=== PATIENT | female | born 1960 | race Caucasian/White ===

== ENCOUNTER 2016-06-05 13:32 | Inpatient (IN) | payer OTHER ==
[~2016-06-05] VITALS: Ht 167.6 cm; Wt 116.9 kg
[2016-06-15] MEDS ORDERED: DILT-64 PO (10:30)
[2016-06-15] MEDS ORDERED: ALPR0.5T3 PO (10:30)
[2016-06-15] MEDS ORDERED: ASPI81TA19 PO (10:30)
[2016-06-15] MEDS ORDERED: CALC500T17 PO (10:30)
[2016-06-15] MEDS ORDERED: POTA-163 PO (10:30)
[2016-06-15] MEDS ORDERED: CHOL1TAB42 PO (10:30)
[2016-06-15] MEDS ORDERED: MULTCAP2 PO (10:30)
[2016-06-15] MEDS ORDERED: HYDR12.56 PO (10:30)
[2016-06-18] MEDS ORDERED: SODIUM CHLORID 0.9% 500 ML IV SCH (06:45)
[2016-06-18] MEDS ORDERED: METOPROLOL TARTRATE 25 MG TAB PO PRN (06:45)
[2016-06-18] MEDS: CHLORHEXIDINE GLUCONATE 2 % 1 PACK (2 CLOTHS) TOP SCH (06:45)
[2016-06-18] MEDS ORDERED: LACTATED RINGER'S 1000 ML IV SCH (06:45)
[2016-06-18] MEDS ORDERED: INSULIN HUMAN REGULAR 1,000 UNITS/10 ML VIAL SQ PRN (06:45)
[2016-06-18] MEDS ORDERED: SCOPOLAMINE 1.5 MG PATCH T-DERMAL SCH (07:00)
[2016-06-18] MEDS ORDERED: metroNIDAZOLE 500 MG INJ 100 ML IV SCH (07:00)
[2016-06-18] MEDS ORDERED: APREPITANT 40 MG CAP PO SCH (07:00)
[2016-06-18] MEDS ORDERED: ceFAZolin 2 GM PREMIX 50 ML IV SCH (07:00)
[2016-06-18] MEDS ORDERED: ACETAMINOPHEN 1000 MG/100 ML VIAL IV SCH (07:00)
[2016-06-18] MEDS ORDERED: ONDANSETRON HCL 4 MG/2 ML VIAL IV PUSH SCH (07:00)
[2016-06-18] MEDS ORDERED: TRIA37.53 PO (07:12)
[2016-06-18] MEDS ORDERED: POTA10TA2 PO (07:15)
[2016-06-18 07:22] VITALS: BP 131/73; PULSE 64; RESP 18; TEMP 97.6; O2SAT 96
[2016-06-18] MEDS: POVIDONE IODINE 5% (ANTISEPSIS KIT) 4 APPLICATIONS EACH NARE SCH (07:35)
[2016-06-18] MEDS ORDERED: MIDAZOLAM HCL 2 MG/2 ML VIAL ONE (09:21)
[2016-06-18] MEDS ORDERED: BUPIVACAINE/EPINEPHRINE 0.25% 50 ML VIAL ONE (09:23)
[2016-06-18] MEDS ORDERED: HYDROmorphone HCL PF 2 MG/ML VIAL ONE (09:32)
[2016-06-18] MEDS ORDERED: fentaNYL CITRATE 250 MCG/5 ML AMP ONE (09:32)
[2016-06-18] MEDS ORDERED: METHYLENE BLUE 100 MG/10 ML VIAL NG ONE (10:08)
[2016-06-18] MEDS: D5-1/2 NS + KCL 20 MEQ INJ 1,000 ML IV SCH ×3 (10:58→22:35)
[2016-06-18] MEDS ORDERED: ACETAMINOPHEN 325MG/HYDROcodone 7.5MG/15ML UDC PO PRN (11:00)
[2016-06-18] MEDS ORDERED: NALOXONE HCL 0.4 MG/ML AMP IV PRN (11:00)
[2016-06-18] MEDS ORDERED: diphenhydrAMINE HCL ELIXIR 12.5 MG/5 ML CUP PO PRN (11:00)
[2016-06-18] MEDS ORDERED: diphenhydrAMINE HCL 50 MG/ML VIAL IV PRN (11:00)
[2016-06-18] MEDS ORDERED: ONDANSETRON HCL 4 MG/2 ML VIAL IV PRN (11:00)
[2016-06-18] MEDS ORDERED: ENALAPRILAT 1.25 MG/ML VIAL IV PUSH PRN (11:00)
[2016-06-18] MEDS ORDERED: SODIUM CHLORIDE 0.9% FLUSH 5 ML FLUSH IVF PRN (11:00)
[2016-06-18] MEDS ORDERED: Post-op Orders (for Pharmacy) MISC XX ONE (11:39)
[2016-06-18] MEDS: RESP: ALBUTEROL 2.5 MG/3 ML NEB (SCH) INH ×3 (12:00→20:49)
[2016-06-18] MEDS: METOCLOPRAMIDE HCL 10 MG/2 ML VIAL IVS SCH ×3 (12:00→23:55)
[2016-06-18] MEDS: MORPHINE SULFATE 30 MG/30 ML PCA IV SCH (12:12)
[2016-06-18] MEDS ORDERED: ePHEDrine/NS 50 MG/5 ML SYR IV ONE (12:58)
[2016-06-18] MEDS ORDERED: PROPOFOL 200 MG/20 ML AMP IV ONE (12:58)
[2016-06-18] MEDS ORDERED: PHENYLEPH/NS 1000 MCG/10 ML SYR IV ONE (12:59)
[2016-06-18] MEDS ORDERED: NEOSTIGMINE 3 MG/3 ML SYR IV ONE (12:59)
[2016-06-18] MEDS ORDERED: LACTATED RINGER'S 1000 ML INJ 1,000 ML IV ONE (12:59)
[2016-06-18] MEDS ORDERED: DO NOT ADM ANY ANTICOAGULANT DRUGS XX PRN (13:00)
[2016-06-18] MEDS: ONDANSETRON HCL 4 MG/2 ML VIAL IV PRN ×2 (13:10→22:40)
[2016-06-18] MEDS: PCA - TOTAL MG MORPHINE DELIVERED PER SHIFT SCH ×2 (14:00→22:00)
[2016-06-18 14:01] VITALS: BP 104/55; PULSE 61; RESP 16; TEMP 95.8; O2SAT 92
[2016-06-18] MEDS ORDERED: ACETAMINOPHEN 1000 MG/100 ML VIAL IV PRN (15:00)
[2016-06-18] MEDS: ENOXAPARIN SODIUM 40 MG/0.4 ML SYRINGE SQ SCH (15:59)
[2016-06-18] MEDS: metroNIDAZOLE 500 MG INJ 100 ML IV SCH ×2 (15:59→23:55)
[2016-06-18 16:00] VITALS: BP 104/55; PULSE 62; RESP 16; TEMP 95.7; O2SAT 93
[2016-06-18 16:42] VITALS: O2SAT 94
[2016-06-18 20:00] VITALS: BP 119/60; PULSE 72; RESP 20; TEMP 97.8; O2SAT 96
[2016-06-18 20:51] VITALS: O2SAT 94
[2016-06-18] MEDS: SODIUM CHLORIDE 0.9% FLUSH 5 ML FLUSH IVF SCH (21:00)
[2016-06-19] VITALS (10 sets, daily range): BP systolic 102–126; BP diastolic 53–72; PULSE 61–87; RESP 16–20; TEMP 97.3–98.5; O2SAT 93–98
[2016-06-19] MEDS: D5-1/2 NS + KCL 20 MEQ INJ 1,000 ML IV SCH ×6 (00:18→20:46)
[2016-06-19] MEDS: RESP: ALBUTEROL 2.5 MG/3 ML NEB (SCH) INH ×6 (00:45→20:41)
[2016-06-19] MEDS: ONDANSETRON HCL 4 MG/2 ML VIAL IV PRN ×2 (04:35→11:49)
[2016-06-19 05:16] LABS: AUTOMATED NEUTROPHIL # 8.3 TH/MM3 (1.8-7.7); HEMATOCRIT 44.2 % (35.0-46.0); HEMO FLAGS DIFF FINAL; LYMPHOCYTE # 0.8 TH/MM3 (1.0-4.8); MEAN CELL VOLUME 91.3 FL (80.0-100.0); MEAN CORPUSCULAR HEMOGLOBIN 30.9 PG (27.0-34.0); MEAN CORPUSCULAR HGB CONC 33.9 % (32.0-36.0); MONO % 6.5 % (0.0-8.0); NEUT % 85.5 % (16.0-70.0); PLATELET COUNT 185 TH/MM3 (150-450); RED BLOOD COUNT 4.84 MIL/MM3 (4.00-5.30); RED CELL DISTRIBUTION WIDTH 13.3 % (11.6-17.2); WHITE BLOOD COUNT 9.7 TH/MM3 (4.0-11.0)
[2016-06-19] MEDS: PCA - TOTAL MG MORPHINE DELIVERED PER SHIFT SCH ×3 (05:39→20:47)
[2016-06-19] MEDS: METOCLOPRAMIDE HCL 10 MG/2 ML VIAL IVS SCH (05:39)
[2016-06-19] MEDS: CHLORHEXIDINE GLUCONATE 2 % 1 PACK (2 CLOTHS) TOP SCH (05:40)
[2016-06-19] MEDS: POVIDONE IODINE 5% (ANTISEPSIS KIT) 4 APPLICATIONS EACH NARE SCH (05:40)
[2016-06-19 05:46] LABS: BICARBONATE 23.7 MEQ/L (21.0-32.0); MAGNESIUM 2.4 MG/DL (1.5-2.5)
[2016-06-19] MEDS: MORPHINE SULFATE 30 MG/30 ML PCA IV SCH (07:12)
[2016-06-19] MEDS: metroNIDAZOLE 500 MG INJ 100 ML IV SCH (07:48)
[2016-06-19] MEDS: PANTOPRAZOLE SODIUM 40 MG VIAL IVP SCH (07:49)
[2016-06-19] MEDS: SODIUM CHLORIDE 0.9% FLUSH 5 ML FLUSH IVF SCH ×2 (07:53→20:46)
[2016-06-19] MEDS: PANTOPRAZOLE SOD 40 MG DELAYED RELEASE TAB PO SCH (07:53)
--- NOTE | 2016-06-19 10:28 | MP ---
cc: JOHNNA EASTON M.D. DATE OF SURGERY: 06/18/2016 PREOPERATIVE DIAGNOSIS Morbid obesity with body mass index of 42, complicated by essential hypotension, hyperlipidemia. POSTOPERATIVE DIAGNOSIS Morbid obesity with body mass index of 42, complicated by essential hypotension, hyperlipidemia. PROCEDURE Laparoscopic vertical sleeve gastrectomy over a 36-[place] ViSi[employer] bougie. SURGEON Johnna Easton MD OPERATOR PREFINISH: Dr. Yung Quiñonez ANESTHESIA General endotracheal anesthesia ESTIMATED BLOOD LOSS Scant. FINDINGS Fatty liver. SPECIMENS None. COMPLICATIONS None. PROCEDURE IN DETAIL The patient was brought to the operating room and placed on the operating table in supine position, bilateral sequential inflation device placed on lower extremities. General anesthesia was instituted. Antibiotics was initiated. The abdomen was prepped and draped sterilely. A point 15 cm distal to the xiphoid in the midline was anesthetized with 0.25% Marcaine with epinephrine. A skin incision was made, 5-mm OptiView port placed under direct vision and pneumoperitoneum created. Under direct vision, three 5-mm left upper quadrant, a 15-mm right upper quadrant, 5-mm right upper quadrant ports placed. Prior to placement of all ports the skin and peritoneum were anesthetized with 0.25% Marcaine with epinephrine. The patient was placed in reverse Trendelenburg position left side up, the [place]-Flex retractor was placed. The left lobe of the liver was retracted. The vasculature along the greater curvature of the stomach was using harmonic scalpel starting a distance 5-cm proximal to the pylorus and carried towards the angle of His. The angle of His was taken down bluntly. Posterior ligamentous attachments were sharply . A 36-[place] ViSi[employer] bougie was placed at the start of the case, was placed on suction. Division of the stomach started 5 cm proximal to the pylorus and carried towards the angle of His to completely excise approximately 80% of the stomach. This was performed using an [place] Flex stapler at the pylorus. The first firing was with a black load, followed by a green load and four gold loads. All staple loads were reinforced with SeamGuard. A distance of 2 cm was left from the angle incisura and the staple line and a distance of 1 cm left from the GE junction and the staple line. The pylorus was then occluded, methylene blue tinged saline was instilled. There was no evidence of extravasation. The gastrocolic ligament was then sutured to the posterior leaflet of the SeamGuard using a 2-0 Vicryl suture in a running manner. Bleeding points were controlled with Evicel. The excised stomach was removed from the peritoneal cavity through the 15-mm port site in an Endopouch. The fascia at the 15-mm port site was approximated with 0 Vicryl suture. The CO2 was then released, all ports were removed, all skin incisions closed with 4-0 Monocryl. The abdominal wall was cleaned. A sterile dressing was placed. The patient was awakened and taken to the recovery room. MD FREEDOM Olson/joss /11:22 AM /10:20 AM
[2016-06-19] MEDS: POTASSIUM CHLOR 20 MEQ PREMIX 100 ML IV SCH ×2 (11:15→13:39)
[2016-06-19] MEDS: DILTIAZEM-CD 240 MG CAP ER PO SCH (11:15)
[2016-06-19] MEDS ORDERED: METOCLOPRAMIDE HCL 10 MG/2 ML VIAL IVS PRN (12:00)
[2016-06-19] MEDS: ENOXAPARIN SODIUM 40 MG/0.4 ML SYRINGE SQ SCH (16:07)
[2016-06-20] VITALS: BP 112/62; PULSE 59; RESP 20; TEMP 98.6; O2SAT 95
[2016-06-20] MEDS: D5-1/2 NS + KCL 20 MEQ INJ 1,000 ML IV SCH ×2 (01:04→10:58)
[2016-06-20] MEDS: ONDANSETRON HCL 4 MG/2 ML VIAL IV PRN (01:38)
[2016-06-20] MEDS: ACETAMINOPHEN 325MG/HYDROcodone 7.5MG/15ML UDC PO PRN ×2 (01:39→11:16)
[2016-06-20] MEDS: CHLORHEXIDINE GLUCONATE 2 % 1 PACK (2 CLOTHS) TOP SCH (01:45)
[2016-06-20] MEDS: POVIDONE IODINE 5% (ANTISEPSIS KIT) 4 APPLICATIONS EACH NARE SCH (01:45)
[2016-06-20] MEDS: PCA - TOTAL MG MORPHINE DELIVERED PER SHIFT SCH (01:45)
[2016-06-20] MEDS: RESP: ALBUTEROL 2.5 MG/3 ML NEB (SCH) INH ×3 (03:22→08:00)
[2016-06-20 08:00] VITALS: BP 126/72; PULSE 56; RESP 19; TEMP 97.7; O2SAT 97
[2016-06-20] MEDS: DILTIAZEM-CD 240 MG CAP ER PO SCH (08:19)
[2016-06-20] MEDS: PANTOPRAZOLE SOD 40 MG DELAYED RELEASE TAB PO SCH (08:19)
[2016-06-20] MEDS: PANTOPRAZOLE SODIUM 40 MG VIAL IVP SCH (08:20)
[2016-06-20] MEDS: SODIUM CHLORIDE 0.9% FLUSH 5 ML FLUSH IVF SCH (08:20)
--- NOTE | 2016-06-20 10:58 | HHI.PR ---
Subjective Subjective Notes pt comfortable no cp no sob kirstie liquids Objective Vitals/I&O Vital Signs Date Time Temp Pulse Resp B/P Pulse Ox O2 Delivery O2 Flow Rate FiO2 06/20/16 08:00 97.7 56 19 126/72 97 06/19/16 20:42 Nasal Cannula 06/19/16 07:11 21 06/18/16 12:30 2 Abdomen: Post-op tenderness Extremities: Perfused Wound Wound : Wound Location: Abdomen Appearance: Clean & Dry A/P Assessment and Plan s/p lap Sleeve doing well D/C home today Ashkan Easton MD Jun 20, 2016 10:58
== END 2016-06-20 12:06 | disposition home or self-care (01) | DRG 621 ==
LOC: HSDI 06-18 05:38 → N07B 06-18 12:56
PROVIDERS: ADMIT Surgery; ATTEND Surgery
PROC: 0DB64Z3 Excision of Stomach, Percutaneous Endoscopic Approach, Vertical (ICD-10-PCS; principal; 2016-06-18 09:32)
DX: E66.01 Morbid (severe) obesity due to excess calories (principal); K76.0 Fatty (change of) liver, not elsewhere classified; Z68.41 Body mass index [BMI] 40.0-44.9, adult; E78.5 Hyperlipidemia, unspecified; I10 Essential (primary) hypertension; Z87.891 Personal history of nicotine dependence
CPT/HCPCS: 80048; 83735; 85025; 94150; 94640; 94664; C9113; J0131; J0690; J1170; J1650; J2250; J2270; J2370; J2405; J2710; J2765; J3010; J3480; J7120; J7613; J8501